=== PATIENT | male | born 1960 | race Caucasian/White ===

== ENCOUNTER → 2017-03-06 | Outpatient (CLI) | payer OTHER | END | disposition home or self-care (01) | LOC: CFH 09:49 | PROVIDERS: ATTEND Internal Medicine Cardiovascular Disease | DX: I35.8 Other nonrheumatic aortic valve disorders (principal); I25.10 Atherosclerotic heart disease of native coronary artery without angina pectoris; I10 Essential (primary) hypertension; Z95.1 Presence of aortocoronary bypass graft; Z95.5 Presence of coronary angioplasty implant and graft | CPT/HCPCS: 93306 ==

== ENCOUNTER → 2017-07-09 | Outpatient (CLI) | payer OTHER ==
[~2017-07-09] MED LIST: ASPI-496 PO; CLOP75TA52 PO; DAPA10TA PO; EZET10TA18 PO; INSU100C SQ-INSULIN; ISOS60TA36 PO; LOSA1TAB25 PO; METO50TA82 PO; NITR0.4T28 SL; ROSU20TA PO
== END | disposition home or self-care (01) ==
LOC: CVU 11:52
PROVIDERS: ATTEND Nurse Practitioner Family
DX: I70.201 Unspecified atherosclerosis of native arteries of extremities, right leg (principal); I72.4 Aneurysm of artery of lower extremity; Z95.5 Presence of coronary angioplasty implant and graft
CPT/HCPCS: 93926

== ENCOUNTER 2019-08-19 12:25 | Outpatient (CLI) | payer OTHER ==
[~2019-08-19 12:25] MED LIST changes: -EZET10TA18 PO; +EZET10TA70 PO; -ROSU20TA PO; +ROSU20TA2 PO
== END 2019-08-19 23:59 | disposition home or self-care (01) ==
LOC: CFH 12:25
PROVIDERS: ATTEND Internal Medicine Cardiovascular Disease
DX: I35.0 Nonrheumatic aortic (valve) stenosis (principal); I25.5 Ischemic cardiomyopathy; I25.10 Atherosclerotic heart disease of native coronary artery without angina pectoris; I11.9 Hypertensive heart disease without heart failure; E78.5 Hyperlipidemia, unspecified
CPT/HCPCS: 93306

== ENCOUNTER 2020-03-13 10:05 | Day surgery (SDC) | payer OTHER ==
[~2020-03-13] VITALS: Ht 172.7 cm; Wt 100.0 kg
[2020-03-13] MEDS ORDERED: DIPHENHYDRAMINE 50 MG/ML, 1ML IVPush ONE (10:30)
[2020-03-13] MEDS ORDERED: DULA1.5P SC (10:47)
[2020-03-13] MEDS ORDERED: CALC625T13 PO (10:47)
[2020-03-13] MEDS ORDERED: ASPI81TA45 PO (10:47)
[2020-03-13] MEDS ORDERED: INSU100V8 SQ (10:47)
[2020-03-13] MEDS ORDERED: AMLO-150 PO (10:47)
[2020-03-13] MEDS ORDERED: EMPA25TA PO (10:47)
[2020-03-13 10:53] VITALS: BP 129/80
[2020-03-13] MEDS ORDERED: DIPHENHYDRAMINE 50 MG/ML, 1ML ONE (10:58)
[2020-03-13] MEDS ORDERED: PLEASE ENTER HEIGHT AND WEIGHT MC SCH (11:00)
[2020-03-13] MEDS ORDERED: SODIUM CHLORIDE 0.9% 1,000 ML IV SCH (11:00)
[2020-03-13 11:04] LABS: BASOPHILS # (AUTO) 0.04 x10^3/uL (0-0.1); BASOPHILS % (AUTO) 0 % (0-1); EOSINOPHILS # (AUTO) 0.43 x10^3/uL (0-0.4); EOSINOPHILS % (AUTO) 4 % (1-7); LYMPHOCYTES # (AUTO) 2.06 x10^3/uL (1-3.4); LYMPHOCYTES % (AUTO) 21 % (22-44); MD NO; MEAN CORPUSCULAR HEMOGLOBIN 28.7 pg (27.5-34.5); MEAN CORPUSCULAR HGB CONC 33.2 g/dL (33.2-36.2); MEAN CORPUSCULAR VOLUME 86.3 fL (81-97); MEAN PLATELET VOLUME 9.6 fL (7.4-10.4); MONOCYTES # (AUTO) 0.85 x10^3/uL (0.2-0.8); MONOCYTES % (AUTO) 9 % (2-9); NEUTROPHILS # (AUTO) 6.35 x10^3/uL (1.8-6.8); NEUTROPHILS % (AUTO) 65 % (42-75); PLATELET COUNT 188 x10^3/uL (130-400); RED BLOOD COUNT 5.48 x10^6/uL (4.38-5.82); RED CELL DISTRIBUTION WIDTH 13.9 % (9.4-14.8)
[2020-03-13 11:13] LABS: ANION GAP 4 mmol/L (5-15); CALCIUM 9.9 mg/dL (8.5-10.1); CHLORIDE 108 mmol/L (98-107); CREATININE 1.31 mg/dL (0.7-1.3)
[2020-03-13] MEDS ORDERED: LIDOCAINE 2%, 20ML ONE (11:41)
[2020-03-13] MEDS ORDERED: MIDAZOLAM 1 MG/ML, 5ML ONE (11:41)
[2020-03-13] MEDS ORDERED: FENTANYL PF 100 MCG/2ML ONE (11:41)
== END 2020-03-13 16:25 | disposition home or self-care (01) ==
LOC: CACL 10:05
PROVIDERS: ATTEND Internal Medicine Cardiovascular Disease
DX: I25.700 Atherosclerosis of coronary artery bypass graft(s), unspecified, with unstable angina pectoris (principal); I25.110 Atherosclerotic heart disease of native coronary artery with unstable angina pectoris; I25.83 Coronary atherosclerosis due to lipid rich plaque; I25.82 Chronic total occlusion of coronary artery; I25.5 Ischemic cardiomyopathy; I10 Essential (primary) hypertension; E11.9 Type 2 diabetes mellitus without complications; E78.2 Mixed hyperlipidemia; E66.3 Overweight; Z68.35 Body mass index [BMI] 35.0-35.9, adult; Z79.82 Long term (current) use of aspirin; Z79.02 Long term (current) use of antithrombotics/antiplatelets; Z79.4 Long term (current) use of insulin; Z79.899 Other long term (current) drug therapy; Z88.0 Allergy status to penicillin; Z88.2 Allergy status to sulfonamides; Z88.5 Allergy status to narcotic agent; Z88.8 Allergy status to other drugs, medicaments and biological substances; Z95.5 Presence of coronary angioplasty implant and graft; Z82.49 Family history of ischemic heart disease and other diseases of the circulatory system
CPT/HCPCS: 36415; 80048; 85025; 93459; 99156; 99157; C1760; C1769; C1894; J1200; J2250; J3010; Q9967